=== PATIENT | male | born 1995 | race Caucasian/White ===

== ENCOUNTER 2023-10-15 13:00 | Emergency (ER) | payer SELFPAY ==
[~2023-10-15] VITALS: Ht 172.7 cm; Wt 130.0 kg
[2023-10-15 13:06] VITALS: BP 153/87; PULSE 95; RESP 16; TEMP 98.3; O2SAT 98
[2023-10-15] MEDS ORDERED: ERYT1OIN6 EACHEYE (13:52)
[2023-10-15] MEDS: TETANUS, DIPHTHERIA, PERTUSSIS VAC/PF 0.5ML (>10YR OLD) IM ONE (14:27)
== END 2023-10-15 14:00 | disposition home or self-care (01) ==
LOC: ER 13:00
DX: H57.11 Ocular pain, right eye (principal)
CPT/HCPCS: 99283